=== PATIENT | female | born 1995 | race Caucasian/White ===

== ENCOUNTER 2024-02-05 10:54 | Emergency (ER) | payer BC ==
[~2024-02-05] VITALS: Ht 170.2 cm; Wt 104.3 kg
[2024-02-05 11:02] VITALS: BP 115/72; PULSE 68; RESP 16; TEMP 98.5; O2SAT 98
[2024-02-05] MEDS ORDERED: IBUP-2213 PO (12:35)
[2024-02-05] MEDS ORDERED: KETOROLAC 60 MG/2 ML VIAL IM ONE (12:35)
[2024-02-05] MEDS: ACETAMINOPHEN EXTRA STRENGTH 500 MG TAB PO ONE (13:14)
== END 2024-02-05 13:23 | disposition home or self-care (01) ==
LOC: MED 10:54
DX: S60.221A Contusion of right hand, initial encounter (principal); M25.531 Pain in right wrist; F12.90 Cannabis use, unspecified, uncomplicated; V29.99XA Rider (driver) (passenger) of other motorcycle injured in unspecified traffic accident, initial encounter; Y93.89 Activity, other specified; Y92.410 Unspecified street and highway as the place of occurrence of the external cause; Y99.8 Other external cause status
CPT/HCPCS: 73110; 81025; 99283; J1885

== ENCOUNTER 2024-02-19 09:35 | Emergency (ER) | payer BC, OTHER ==
[~2024-02-19] VITALS: Ht 170.2 cm; Wt 122.0 kg
[2024-02-19 09:39] VITALS: BP 128/71; PULSE 87; RESP 18; TEMP 97.6; O2SAT 98
[2024-02-19 10:48] LABS: BASOPHILS % (AUTO) 0.4 % (0.0-2.0); EOSINOPHILS # (AUTO) 0.3 K/uL (0-0.4); HEMATOCRIT 40.1 % (36-48); HEMOGLOBIN 13.8 g/dL (12.0-16.0); LYMPHOCYTES # (AUTO) 2.4 K/uL (2.5-16.5); LYMPHOCYTES % (AUTO) 28.3 % (20.5-51.1); MEAN CORPUSCULAR HEMOGLOBIN 32 pg (27-31); MEAN CORPUSCULAR HGB CONC 35 g/dL (33-37); MEAN CORPUSCULAR VOLUME 92.1 fL (80-94); MONOCYTES # (AUTO) 0.5 K/uL (0.8-1.0); MONOCYTES % (AUTO) 6.3 % (1.7-9.3); NEUTROPHILS # (AUTO) 5.1 K/uL (1.8-7.7); PLATELET COUNT (AUTO) 273 K/uL (140-450); RED BLOOD CELL COUNT(AUTO) 4.35 MIL/uL (4.20-5.40); RED CELL DISTRIBUTION WIDTH 13.3 % (11.6-13.7); WHITE BLOOD COUNT (AUTO) 8.4 K/uL (4.8-10.8)
[2024-02-19 11:00] LABS: APPEARANCE,URINE CLEAR (CLEAR); BILIRUBIN,URINE NEGATIVE (NEGATIVE); BLOOD, URINE 3+ (NEGATIVE); COLOR,URINE YELLOW (YELLOW); LEUKOCYTE ESTERASE ,URINE TRACE (NEGATIVE); NITRITE, URINE NEGATIVE (NEGATIVE); PH,URINE 5.5 (5.0-9.0); PROTEIN,URINE NEGATIVE (NEGATIVE); UGLUCOSE NEGATIVE (NEGATIVE); UROBILINOGEN,URINE 0.2 EU/dL (0.2 - 1)
[2024-02-19 11:17] LABS: BACTERIA,URINE 1+ /HPF (None Seen); RBC,URINE >20 (MANY) /HPF (0-5); SQUAMOUS EPITHELIAL CELL,UR 4-10 (MOD) /LPF (0-3 (FEW))
[2024-02-19] MEDS ORDERED: CEPH250C16 PO (11:57)
[2024-02-19 12:12] VITALS: BP 118/54; PULSE 88; RESP 17; TEMP 97.8; O2SAT 99
== END 2024-02-19 12:12 | disposition home or self-care (01) ==
LOC: MED 09:35
DX: O20.8 Other hemorrhage in early pregnancy (principal); O23.91 Unspecified genitourinary tract infection in pregnancy, first trimester; R82.71 Bacteriuria; Z3A.01 Less than 8 weeks gestation of pregnancy; Z79.899 Other long term (current) drug therapy
CPT/HCPCS: 36415; 76817; 81001; 81025; 84702; 85025; 86900; 86901; 87086; 99284; Q0092